=== PATIENT | female | born 2000 | race African-American/Black ===

== ENCOUNTER 2019-12-29 13:05 | Emergency (ER) | payer SELFPAY ==
[2019-12-29 13:09] VITALS: BP 146/82; PULSE 86; RESP 18; TEMP 36.6; O2SAT 100
--- NOTE | 2019-12-29 13:47 | ED.EPISTAXIS ---
HPI - Epistaxis General Chief complaint: Epistaxis Stated complaint: NOSEBLEED Time Seen by Provider: 12/29/19 13:46 Source: patient and RN notes reviewed Mode of arrival: EMS Limitations: no limitations History of Present Illness HPI Narrative: Pt is a 19 y/o male who presents to the ED, via EMS, with c/o epistaxis that began at noon today. Pt states her sx lasted for 1.5 hours. Pt notes that the bleeding started in her right nostril. Pt states that he has a hx of nasal polyp in rt nare. Pt states that her episodes have gotten worse since she moved from [place]. Pt states that she has an episode of epistaxis every day, but she states the bleeding was worse today. She notes that her epistaxis normally lasts for 1-2 hours. She states that sometimes the blood will come out of her eyes and mouth as well. Pt?s employer sent pt to the ED for evaluation. Pt had a nasal clip placed by EMS, but she has removed the clip while in the ED bed. Pt also reports an achy frontal headache, rhinorrhea, and SOB, but denies a fever, cough, and chills. MD complaint: epistaxis Location: right nostril Onset (ago): hour(s) (2) Context: history of previous Associated symptoms: headache (frontal) and other (dyspnea, rhinorrhea) Treatment prior to arrival: nasal clamp Related Data Home Medications Medication Instructions Recorded Confirmed No Home Medications 12/29/19 12/29/19 Allergies Allergy/AdvReac Type Severity Reaction Status Date / Time ibuprofen [From Advil] Allergy Mild Itching Verified 12/29/19 13:18 Review of Systems Review of Systems: All systems reviewed & are unremarkable except as noted in HPI and below Constitutional: Constitutional: Denies chills and Denies fever(s) ENT: Reports epistaxis and Reports other (rhinorrhea) Respiratory: Respiratory: Denies cough and Reports dyspnea Neurologic: Reports headache(s) (frontal) [facility] Past Medical History Medical History (Updated 12/30/19 @ 00:00 by Do Ariza) Nasal polyp Surgical History Surgical History (Updated 12/29/19 @ 14:00 by Martine Rodrigez) Surgical history unknown Social History Social History (Updated 12/29/19 @ 14:00 by Martine Rodrigez) Smoking status: Never smoker Gender identity (if verbalized by the patient): Female Exam Const: General: no acute distress and well developed Orientation/consciousness: oriented to person, oriented to place, oriented to time and patient oriented x3 HENMT: Head: normocephalic Ears: external ears normal General nose exam: Nasal polyp present bilateral and Other nasal findings present (blood in nares bilaterally, but no active bleeding present) Eyes: General: appearance normal, both eyes and all related structures Conjunctivae: conjunctivae normal Neck: Neck: normal visual inspection and full ROM Resp: Effort & Inspection: normal respiratory effort Auscultation: clear to auscultation bilaterally Cardio: Rate: regular rate Rhythm: regular rhythm Skin: General skin exam: normal color and turgor normal Neuro: General: oriented to person, oriented to place, oriented to time and patient oriented x3 Cognition (Neuro): normal cognition Extrem: General: normal to inspection, full ROM and no pedal edema Psych: Appearance: grossly normal Mental Status: mental status grossly normal Affect: normal affect Course Reevaluation(s) Reevaluation #1: Pt states that she feels well. No active bleeding at this time. Date: 12/29/19 Time: 15:44 Vital Signs Vital signs: Vital Signs Temperature 36.6 C 12/29/19 13:09 Pulse Rate 86 12/29/19 13:09 Respiratory Rate 18 12/29/19 13:09 Blood Pressure 146/82 H 12/29/19 13:09 Pulse Oximetry 100 12/29/19 13:09 Temperature 36.6 C 12/29/19 13:09 Pulse Rate 86 12/29/19 13:09 Respiratory Rate 18 12/29/19 13:09 Blood Pressure 146/82 H 12/29/19 13:09 Pulse Oximetry 100 12/29/19 13:09 MDM - Epistaxis Lab Data Result diagrams:
[2019-12-29 14:16] LABS: Basophils Percent Auto 0.3 % (0.2-1.2); Eosinophils Absolute Auto 0.1 K/mm3 (0-0.3); Hematocrit 24.6 % (37.0-47.0); Hemoglobin 7.1 g/dL (12.0-15.0); Immature Granulocyte Absolute 0.01 K/mm3 (0.00-0.031); Immature Granulocyte Percent A 0.1 % (0-0.5); Lymphocytes Absolute Auto 2.73 K/mm3 (0.9-3.2); Lymphocytes Percent Auto 40.2 % (18.3-44.2); Mean Corpuscular HGB Conc 28.9 g/dl (32-36); Mean Corpuscular Hemoglobin 22.5 pg (26-34); Mean Corpuscular Volume 78.1 fl (80-100); Mean Platelet Volume 10.9 fl (7.4-10.4); Monocytes Absolute Auto 0.6 K/mm3 (0.1-0.6); Monocytes Percent Auto 9.1 % (2.6-8.5); Neutrophils Absolute Auto 3.3 K/mm3 (1.3-6.7); Neutrophils Percent Auto 49.3 % (45.5-73.1); Platelet Count Result 308 k/mm3 (150-375); Red Blood Count 3.15 M/mm3 (4.2-5.4); Red Cell Distribution Width 15.9 % (11.5-14.5); White Blood Count 6.8 K/mm3 (4.5-10.0)
[2019-12-29 14:26] LABS: INR 1.1; Prothrombin Time 14.1 Seconds (11.1-14.7)
[2019-12-29 14:27] LABS: Blood Urea Nitrogen 11 mg/dL (7-17); Calcium 8.9 mg/dL (8.4-10.2); Carbon Dioxide 24 mmol/L (22-30); Chloride 104 mmol/L (98-107); Estimated CRCL calculation 147 ml/min; Estimated Glomerular Filt Rate > 60; Glucose 93 mg/dL (65-105); Partial Thromboplastin Time 29.6 SECONDS (22.3-36.8); Potassium 3.5 mmol/L (3.4-5.0); Sodium 139 mmol/L (137-145)
--- NOTE | 2019-12-29 14:57 | PC.NURSE ---
no active nasal bleeding at this time.
== END 2019-12-29 16:41 | disposition home or self-care (01) ==
PROVIDERS: Emergency Provider Emergency Medicine
DX: R04.0 Epistaxis (principal); J33.9 Nasal polyp, unspecified; D64.9 Anemia, unspecified
CPT/HCPCS: 36415; 80048; 81025; 85025; 85610; 85730; 99283

== ENCOUNTER 2022-09-22 10:45 | Emergency (ER) | payer OTHER, SELFPAY ==
--- NOTE | ~2022-09-22 | XR_ITS ---
EXAMINATION: XR chest 1V portable DATE: 09/22/2022 12:57 INDICATION: Cough. TECHNIQUE: A single frontal view of the chest was obtained. COMPARISON: None. FINDINGS: There is no pneumonia, pleural effusion, pneumothorax. The heart size is normal. IMPRESSION: 1. No acute cardiopulmonary disease. Reviewed, dictated and finalized at location A. [employer]
[2022-09-22 11:22] VITALS: BP 135/75; PULSE 84; RESP 15; TEMP 36.6; O2SAT 100
[2022-09-22 11:57] VITALS: BP 130/82; PULSE 72; RESP 16; O2SAT 100
--- NOTE | 2022-09-22 12:08 | PC.NURSE ---
Called to room for bleeding from left nare. States he has hx of nosebleeds. Clamp placed on nose.
[2022-09-22 12:25] LABS: Basophils Percent Auto 0.4 % (0.2-1.2); Immature Granulocyte Absolute 0.02 K/mm3 (0.00-0.031); Immature Granulocyte Percent A 0.4 % (0-0.5); Lymphocytes Absolute Auto 1.35 K/mm3 (0.9-3.2); Mean Corpuscular HGB Conc 31.3 g/dl (32-36); Mean Corpuscular Hemoglobin 26.4 pg (26-34); Mean Corpuscular Volume 84.5 fl (80-100); Mean Platelet Volume 11.3 fl (7.4-10.4); Monocytes Absolute Auto 0.9 K/mm3 (0.1-0.6); Monocytes Percent Auto 20.4 % (2.6-8.5); Neutrophils Absolute Auto 2.2 K/mm3 (1.3-6.7); Neutrophils Percent Auto 48.8 % (45.5-73.1); Platelet Count Result 144 k/mm3 (150-375); Red Blood Count 5.68 M/mm3 (4.2-5.4); Red Cell Distribution Width 16.1 % (11.5-14.5); White Blood Count 4.5 K/mm3 (4.5-10.0)
[2022-09-22 12:39] LABS: Alanine Aminotransferase 27 U/L (6-35); Albumin Level 4.7 g/dL (3.5-5.1); Alkaline Phosphatase 69 U/L (38-126); Anion Gap 16 mmol/L (8-16); Aspartate Amino Transferase 44 U/L (14-36); Bilirubin,Total 1.1 mg/dL (0.2-1.3); Blood Urea Nitrogen 15 mg/dL (7-17); Calcium 8.6 mg/dL (8.4-10.2); Carbon Dioxide 26 mmol/L (22-30); Chloride 97 mmol/L (98-107); Estimated CRCL calculation 93 ml/min; Estimated Glomerular Filt Rate > 60; Glucose 89 mg/dL (65-110); Lipase 101 U/L (23-300); Potassium 3.4 mmol/L (3.4-5.0); Sodium 139 mmol/L (137-145)
[2022-09-22] MEDS: ONDANSETRON INJ 4 MG/2 ML VIAL IV PUSH (12:45)
[2022-09-22] MEDS: SODIUM CHLORIDE 0.9% IV 1,000 ML 999 ML IV CONT (12:45)
[2022-09-22] MEDS: FAMOTIDINE 20 MG/2 ML VIAL IV PUSH (12:46)
[2022-09-22 12:57] LABS: Influenza A QL RT-PCR Positive (Negative); Influenza B QL RT-PCR Negative (Negative); SARS-CoV-2 RNA PCR Negative
[2022-09-22 12:59] LABS: Atypical Lymphocytes Present; Platelet Estimate Adequate (Adequate); Schistocytes None Seen (NORMAL)
--- NOTE | 2022-09-22 13:43 | PC.NURSE ---
1 liter NS that was started by ems infused.
--- NOTE | 2022-09-22 14:06 | ED.URI ---
HPI - URI/Sore Throat General Chief Complaint: Upper Respiratory Infection Stated Complaint: n/v, flu symptoms Time Seen by Provider: 09/22/22 11:52 Source: RN notes reviewed History of Present Illness HPI Narrative: Patient presents emergency room from home for upper respiratory infection symptoms. Patient states symptoms began 2 days ago. States he has had subjective fevers as well as rhinorrhea sore throat a cough this been nonproductive and nausea and vomiting. States that they did not take any medicatio for the symptoms today. Denies any chest pain or shortness of breath denies any abdominal pain or diarrhea. Patient states he did not have flu vaccination Related Data Allergies Allergy/AdvReac Type Severity Reaction Status Date / Time No Known Allergies Allergy Verified 09/22/22 11:57 Review of Systems Review of Systems: Gen.: Subjective fevers Eyes: Denies eye pain or visual change ENT: Reports rhinorrhea and sore throat Respiratory: Denies shortness of breath reports cough CV: Denies chest pain or palpitations GI: Denies abdominal pain or diarrhea ports nausea and vomiting Musculoskeletal: Denies back pain or muscle pain Neuro: Denies numbness, tingling, weakness or focal weakness Skin: Denies rash Except as documented, all other systems reviewed and negative [facility] Past Medical History Medical History Nasal polyp Surgical History Surgical History (Updated 12/29/19 @ 14:00 by Martine Rodrigez) Surgical history unknown Social History Social History Smoking status: Never smoker Gender identity (if verbalized by the patient): Female Exam Narrative: APPEARANCE: No acute distress, nontoxic, resting in bed EYES: EOMI HEENT: Normocephalic, atraumatic, TMs clear bilaterally bilateral turbinates boggy, mild erythema no exudate posterior pharynx and bilateral tonsils, airway patent RESPIRATORY: No respiratory distress Clear to auscultation bilaterally with no rhonchi wheezing or rales. CARDIOVASCULAR: Regular rate and rhythm without murmurs rubs or gallops. ABDOMINAL: Soft, nontender, nondistended, no rebound or guarding MUSCULOSKELETAl: Moves all extremities. No clubbing, cyanosis or edema. NEURO: Awake and alert. Following commands, speech normal, no focal deficits SKIN:: Warm, dry. No rashes lesions or abrasions PSYCHIATRIC: Normal affect/mood, Course Course Emergency Course: Discussed with patient results of workup and diagnosis. Discussed need for follow-up with primary care, proper use of medication, and reasons to return to the emergency department. Patient understands and agrees to current treatment plan Vital Signs Vital signs: Vital Signs Temperature 97.9 F 09/22/22 11:22 Pulse Rate 84 09/22/22 11:22 Respiratory Rate 15 09/22/22 11:22 Blood Pressure 135/75 09/22/22 11:22 Pulse Oximetry 100 09/22/22 11:22 Oxygen Delivery Room Air 09/22/22 11:22 Temperature 97.9 F 09/22/22 11:22 Pulse Rate 72 09/22/22 11:57 Respiratory Rate 16 09/22/22 11:57 Blood Pressure 130/82 09/22/22 11:57 Pulse Oximetry 100 09/22/22 11:57 Oxygen Delivery Room Air 09/22/22 11:22 MDM - URI/Sore Throat Lab Data Result diagrams: 09/22/22 12:15 09/22/22 12:15 Labs: Lab Results 09/22/22 09/22/22 09/22/22 Range/Units 12:10 12:15 12:15 WBC 4.5 (4.5-10.0) K/mm3 RBC 5.68 H (4.2-5.4) M/mm3 Hgb 15.0 D (12.0-15.0) g/dL Hct 48.0 H (37.0-47.0) % MCV 84.5 (80-100) fl MCH 26.4 (26-34) pg MCHC 31.3 L (32-36) g/dl RDW 16.1 H (11.5-14.5) % Plt Count 144 L D (150-375) k/mm3 MPV 11.3 H (7.4-10.4) fl Immature Gran % (Auto) 0.4 (0-0.5) % Neut % (Auto) 48.8 (45.5-73.1) % Lymph % (Auto) 30.0 (18.3-44.2) % [place] % (Auto) 20.4 H (2.6-8.5) % Eos % (Auto) 0.0 (0-4.4) % Baso
[2022-09-22 14:13] LABS: Appearance Urine Slightly Cloudy (Clear); Bilirubin Urine 2+ (Negative); Blood Urine Negative (Negative); Color Urine Yellow (Yellow); Glucose Urine UA Negative (Negative); Ketones Urine 2+ mg/dL (Negative); Leukocyte Esterase Ur Trace LEU/UL (Negative); Nitrate Urine Negative (Negative); Protein Urine 1+ mg/dL (Negative); Specific Grav Ur >= 1.030 (1.001-1.035); pH Urine 5.5 (5.0-9.0)
[2022-09-22 14:17] LABS: Amorphous Sediment Urine Few; Bacteria Urine Trace /hpf; Mucus Urine Heavy /lpf; Squamous Epithelial Cell Urine Rare /hpf (Few)
[2022-09-22 14:21] LABS: Add Urine Microscopic? YES
[2022-09-22] MEDS: NITROFURANTOIN MONOHYD MACROCR 100 MG CAP PO (14:30)
== END 2022-09-22 14:47 | disposition home or self-care (01) ==
PROVIDERS: Emergency Provider Emergency Medicine
DX: J10.1 Influenza due to other identified influenza virus with other respiratory manifestations (principal); N39.0 Urinary tract infection, site not specified; Z20.822 Contact with and (suspected) exposure to COVID-19
CPT/HCPCS: 36415; 71045; 80053; 81001; 83690; 85025; 87086; 87636; 96361; 96365; 96375; 99284; A9270; J0131; J2405; J7030

== ENCOUNTER 2023-03-01 09:36 | Emergency (ER) | payer OTHER, SELFPAY ==
[2023-03-01] VITALS (8 sets, daily range): BP systolic 110–135; BP diastolic 62–70; PULSE 54–77; RESP 14–19; TEMP 36.3; O2SAT 98–100
--- NOTE | 2023-03-01 10:12 | ECG_ITS ---
Measurements Intervals [place] Rate: 52 P: 55 NM: 140 QRS: 41 QRSD: 98 T: 51 QT: 425 QTc: 398 Interpretive Statements SINUS BRADYCARDIA WITH SINUS ARRHYTHMIA EARLY REPOLARIZATION WITHIN NORMAL LIMITS NO PREVIOUS ECG AVAILABLE FOR COMPARISON Electronically Signed On 03-02-2023 6:56:01 CDT by Bobo [email or web address] M.D.
--- NOTE | 2023-03-01 10:17 | ED.EPISTAXIS ---
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 Patient states he woke up to the sensation of blood going on his throat, epistaxis started in his left nare and then moved to the right, lasted approximately 10 minutes and self resolved just prior to arrival. Patient reports he has had daily episodes of epistaxis for multiple years, he was evaluated by an ENT 1 year ago and had a polyp removed in his left nare. States he has not been seen by ENT since. Patient reports he always feels lightheaded when he gets epistaxis and came to the ED today because he needs to get this figured out. He denies chest pain, shortness of breath, fever, bodies, chills, congestion, sore throat. Denies LOC. Related Data Allergies Allergy/AdvReac Type Severity Reaction Status Date / Time No Known Allergies Allergy Verified 03/01/23 10:11 Review of Systems Review of Systems: CONSTITUTIONAL: Denies fever, chills EYES: Denies visual changes, redness, or discharge. ENT: See HPI CARDIOVASCULAR: Denies chest pain, palpitations, or edema. RESPIRATORY: Denies cough or dyspnea. GASTROINTESTINAL: Denies abdominal pain, nausea, vomiting, or diarrhea. GENITOURINARY: Denies dysuria or hematuria. SKIN: Denies rash or itching. MUSCULOSKELETAL: Denies back pain, joint pain, or myalgia. NEUROLOGIC: See HPI PSYCHIATRIC: Denies anxiety or depression. [facility] Past Medical History Medical History Nasal polyp Surgical History Surgical History Surgical history unknown Social History Social History Smoking status: Never smoker Gender identity (if verbalized by the patient): Female Exam Narrative: GENERAL: no acute distress. HEAD: Normocephalic, atraumatic. EYES: PERRLA and EOMI. ENT: No current epistaxis. Nasal polyps present in bilateral nares. No oropharyngeal swelling or exudates. No bleeding noted posterior pharynx. NECK: Supple CHEST: Clear to auscultation. No respiratory distress. No wheezes rales or rhonchi HEART: Regular rate and rhythm. No murmur heard. Normal peripheral pulses. EXTREMITIES: Normal range of motion. No edema. SKIN: Warm, dry, no rash. NEURO: No focal deficits. Alert and oriented x3. Cranial nerves II through XII intact. Strength 5 out of 5 in bilateral upper and lower extremities. Sensation intact throughout. PSYCH: Normal mood and affect. Course Course Emergency Course: 1242: Patient reevaluated. He is sleeping in exam bed. Upon awakening, he is reporting improvement in lightheadedness. No episodes of epistaxis while in the ED. 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 Patient also complaining of a frontal headache since this morning. No epistaxis while in the ED. Exam reveals bilateral nasal polyps. He is neurovascularly intact. SAH ruled out with [place]. EKG shows sinus bradycardia with sinus
[2023-03-01 10:25] LABS: Basophils Percent Auto 0.6 % (0.2-1.2); Eosinophils Absolute Auto 0.1 K/mm3 (0-0.3); Eosinophils Percent Auto 2.1 % (0-4.4); Hematocrit 42.9 % (37.0-47.0); Hemoglobin 13.3 g/dL (12.0-15.0); Immature Granulocyte Absolute 0.01 K/mm3 (0.00-0.031); Immature Granulocyte Percent A 0.2 % (0-0.5); Lymphocytes Absolute Auto 2.09 K/mm3 (0.9-3.2); Mean Platelet Volume 11.7 fl (7.4-10.4); Monocytes Absolute Auto 0.6 K/mm3 (0.1-0.6); Neutrophils Absolute Auto 2.5 K/mm3 (1.3-6.7); Neutrophils Percent Auto 47.1 % (45.5-73.1); Platelet Count Result 184 k/mm3 (150-375); Red Blood Count 4.93 M/mm3 (4.2-5.4); Red Cell Distribution Width 14.7 % (11.5-14.5); White Blood Count 5.4 K/mm3 (4.5-10.0)
[2023-03-01] MEDS: PROCHLORPERAZINE EDISYLATE 10 MG/2 ML VIAL IV PUSH (10:29)
[2023-03-01] MEDS: diphenhydrAMINE HCl INJ 50 MG/ML VIAL 25 MG IV PUSH (10:29)
[2023-03-01] MEDS: SODIUM CHLORIDE 0.9% IV 1,000 ML 999 ML IV CONT (10:29)
[2023-03-01 10:38] LABS: Alanine Aminotransferase 24 U/L (6-35); Albumin Level 4.4 g/dL (3.5-5.1); Alkaline Phosphatase 79 U/L (38-126); Anion Gap 3 mmol/L (8-16); Aspartate Amino Transferase 26 U/L (14-36); Bilirubin,Total 0.8 mg/dL (0.2-1.3); Blood Urea Nitrogen 16 mg/dL (7-17); Calcium 8.7 mg/dL (8.4-10.2); Carbon Dioxide 33 mmol/L (22-30); Chloride 104 mmol/L (98-107); Estimated CRCL calculation 104 ml/min; Estimated Glomerular Filt Rate > 60; Glucose 99 mg/dL (65-110); Potassium 4.2 mmol/L (3.4-5.0); Sodium 140 mmol/L (137-145)
[2023-03-01 10:41] LABS: INR 1.1; Prothrombin Time 13.9 Seconds (11.1-14.7)
[2023-03-01 10:42] LABS: Partial Thromboplastin Time 32.7 SECONDS (22.3-36.8)
== END 2023-03-01 13:35 | disposition home or self-care (01) ==
PROVIDERS: Emergency Provider Physician Assistant
DX: J33.9 Nasal polyp, unspecified (principal)
CPT/HCPCS: 36415; 80053; 81025; 85025; 85610; 85730; 93005; 96361; 96365; 96375; 99284; J0131; J0780; J1200; J7030